=== PATIENT | male | born 1955 | race Caucasian/White ===

== ENCOUNTER 2020-02-14 18:51 | Emergency (ER) | payer BC ==
--- NOTE | 2020-02-14 19:28 | EDM.PDOC ---
ED HPI GENERAL MEDICAL PROBLEM - General Chief Complaint: Respiratory Problem Stated Complaint: SUDDEN ONSET OF COUGH Time Seen by Provider: 02/14/20 19:06 Source of Information: Reports: Patient History Limitations: Reports: No Limitations - History of Present Illness INITIAL COMMENTS - FREE TEXT/NARRATIVE: Mr. Cooper is a very pleasant 64-year-old gentleman with a past medical history significant for peripheral vascular disease, status post a left femoral artery bypass surgery on 02/05/2020, now on Plavix and baby aspirin, who states that he has a chronic smoker's cough, although he has not actually been diagnosed with COPD or any other difficult lung disease, although he does take Anoro. He now presents to the ED stating that he developed bloody sputum, with actual chunks of blood in his sputum, around 18:00 this evening. He has not had any chest or throat pain, and he does not feel dyspneic. No recent fever. No prior similar symptoms. The patient did not take any new medications or try any home remedies prior to coming to the ED. Here in the ED, the patient is found to be hemodynamically stable, afebrile, saturating 96% on room air. He coughed once in my presence, producing a pinkish sputum with no distinct visible clots, although he states that the bloodiness of the sputum has diminished since it initially began. Other than his chronic smoker's cough and today's bloody sputum, the patient denies recent fever, chills, sore throat, ear pain, nasal or sinus congestion, dyspnea, chest pain, palpitations, nausea, vomiting, constipation, diarrhea, abdominal pain, urinary symptoms, recent weight gain or weight loss, recent bloody bowel movements or black bowel movements, recent joint aches, headaches, or rashes. The patient's PCP is Dr. Rome William, although he sometimes sees Nandini Carney NP. His Vascular Surgeon is Dr. Manas Turcios. - Related Data Allergies Allergy/AdvReac Type Severity Reaction Status Date / Time No Known Allergies Allergy Verified 02/14/20 19:03 Home Meds: Home Meds Amoxicillin 1,000 mg PO Q8H #42 tab 02/14/20 [Rx] Anoro. 1 inh INH DAILY 02/14/20 [History] Aspirin [Aspir 81] 81 mg PO DAILY 02/14/20 [History] Azithromycin 1 tab PO QPM #4 tablet 02/14/20 [Rx] Bifidobacter. Bifidum/B.Longum [Florajen Bifidoblend] 460 mg PO DAILY 02/14/20 [History] Clopidogrel Bisulfate [Clopidogrel] 75 mg PO DAILY 02/14/20 [History] Rosuvastatin [Crestor] 10 mg PO BEDTIME 02/14/20 [History] Past Medical History Cardiovascular History: Reports: High Cholesterol, PVD Gastrointestinal History: Reports: Colon Polyp - Infectious Disease History Infectious Disease History: Reports: Meningitis (bacterial, 2005) - Past Surgical History HEENT Surgical History: Reports: Oral Surgery (dental extractions) Cardiovascular Surgical History: Reports: Vascular Surgery (Left femoral artery bypass 02/05/2020) GI Surgical History: Reports: Colonoscopy (x 1) Social & Family History - Tobacco Use Smoking Status *Q: Current Every Day Smoker Years of Tobacco use: 46 Packs/Tins Daily: 0.3 Packs/Tins Daily Comment: Down from 1.5 ppd - Caffeine Use Caffeine Use: Reports: None - Alcohol Use Alcohol Use History: Yes Alcohol Use Frequency: Rarely - Recreational Drug Use Recreational Drug Use: No - Living Situation & Occupation Living situation: Reports: , with Family (Brother) Occupation: Employed (professional driver) ED ROS GENERAL - Review of Systems Review Of Systems: Comprehensive ROS is negative, except as noted in HPI. ED EXAM, GENERAL - Physical Exam Exam: See Below Exam Limited By: No Limitations General Appearance: Alert, WD/WN, No Apparent Distress Eye Exam: Bilateral Eye: EOMI, Normal Inspection Ears: Normal External Exam, Normal Canal, Normal TMs, Hearing Loss (has bilateral hearin aids) Nose: Normal Inspection, Normal Mucosa, No Blood Throat/Mouth: Normal Inspection, Normal Lips, Normal Teeth, Normal Gums, Normal Oropharynx (No visible abnormalities or blood), Normal Voice, No Airway Compromise Head: Atraumatic, Normocephalic Neck: Normal Inspection, Supple, Non-Tender, Full Range of Motion. No: Lymphadenopathy (L), Lymphadenopathy (R) Respiratory/Chest: No Respiratory Distress, Lungs Clear, Normal Breath Sounds, No Accessory Muscle Use. No: Decreased Breath Sounds, Crackles, Rhonchi, Wheezing, Stridor, Prolonged Expiration Cardiovascular: Normal Peripheral Pulses, Regular Rate, Rhythm, No Edema, No Gallop, No JVD, No Murmur, No Rub Peripheral Pulses: 3+: Radial (L), Radial (R) GI/Abdominal: Normal Bowel Sounds, Soft, Non-Tender, No Organomegaly, No Distention, No Abnormal Bruit, No Mass (Male) Exam: Deferred Rectal (Males) Exam: Deferred Back Exam: Normal Inspection, Full Range of Motion, NT Extremities: Normal Inspection, Normal Range of Motion, No Pedal Edema, Normal Capillary Refill Neurological: Alert, Oriented, Normal Cognition, No Motor/Sensory Deficits Psychiatric: Normal Affect Skin Exam: Warm, Dry, Intact, Normal Color, No Rash Course - Vital Signs Last Recorded V/S: Last Vital Signs Temp 37.1 C 02/14/20 18:59 Pulse 91 02/14/20 18:59 Resp 16 02/14/20 18:59 BP 139/90 02/14/20 18:59 Pulse Ox 96 02/14/20 18:59 - Orders/Labs/Meds Orders: Active Orders 24 hr Category Date Time Status Chest 2V [CR] Stat Exams 02/14/20 19:24 Taken Sodium Chloride 0.9% [Normal Saline] 1,000 ml Med 02/14/20 20:15 Active IV ASDIRECTED Medication Orders Sodium Chloride (Normal Saline) 1,000 mls @ 150 mls/hr IV ASDIRECTED RAISSA Last Admin: 02/14/20 20:27 Dose: 150 mls/hr Documented by: CYDNEY Labs: Laboratory Tests 02/14/20 02/14/20 Range/Units 19:40 19:40 WBC 9.90 H (4.23-9.07) K/mm3 RBC 4.51 L (4.63-6.08) M/mm3 Hgb 13.7 (13.7-17.5) gm/dl Hct 40.5 (40.1-51.0) % MCV 89.8 (79.0-92.2) fl MCH 30.4 (25.7-32.2) pg MCHC 33.8 (32.2-35.5) g/dl RDW Std Deviation 42.0 (35.1-43.9) fL Plt Count 396 H (163-337) K/mm3 MPV 9.0 L (9.4-12.3) fl Neut % (Auto) 72.2 H (34.0-67.9) % Lymph % (Auto) 14.8 L (21.8-53.1) % [place] % (Auto) 8.9 (5.3-12.2) % Eos % (Auto) 3.3 (0.8-7.0) Baso % (Auto) 0.4 (0.1-1.2) % Neut # (Auto) 7.14 H (1.78-5.38) K/mm3 Lymph # (Auto) 1.47 (1.32-3.57) K/mm3 [place] # (Auto) 0.88 H (0.30-0.82) K/mm3 Eos # (Auto) 0.33 (0.04-0.54) K/mm3 Baso # (Auto) 0.04 (0.01-0.08) K/mm3 Sodium 138 (136-145) mEq/L Potassium 4.1 (3.5-5.1) mEq/L Chloride 102 (98-107) mEq/L Carbon Dioxide 28 (21-32) mEq/L Anion Gap 12.1 (5-15) BUN 17 (7-18) mg/dL Creatinine 1.3 (0.7-1.3) mg/dL Est Cr Clr Drug Dosing 53.67 mL/min Estimated GFR (MDRD) 56 (>60) mL/min BUN/Creatinine Ratio 13.1 L (14-18) Glucose 117 H (80-115) mg/dL Calcium 8.4 L (8.5-10.1) mg/dL Meds: Medications Generic Name Dose Route Start Last Admin Trade Name Freq PRN Reason Stop Dose Admin Sodium Chloride 1,000 mls @ 150 mls/hr 02/14/20 20:15 02/14/20 20:27 Normal Saline IV 150 mls/hr ASDIRECTED [facility] Administration - Re-Assessments/Exams Free Text/Narrative Re-Assessment/Exam: 02/14/20 19:25 As above, the patient has a chronic smoker's cough, but this evening developed painless bloody sputum, without dyspnea, chest pain, or fever. His oxygen saturation is normal for his age, and on examination, his lungs are entirely clear to auscultation bilaterally, without crackles or wheezes. No abnormalities are seen to the posterior oropharynx, however, I suspect that that is the source of his blood, and not his lungs. Nevertheless, I have ordered a chest x-ray to evaluate for infiltrate that might suggest true hemoptysis, and a CBC to make sure that he is not significantly anemic. 02/14/20 20:04 Two-view chest radiograph reviewed. The cardiac silhouette is within normal limits. No pulmonary vascular congestion. No pleural effusions. There appears to be a small infiltrate at the inferior and lateral aspect of the right upper lobe. No pneumothorax. Formal read per the Radiologist pending. The patient's CBC is remarkable for WBC count slightly elevated at 9.90 and platelets mildly elevated at 396,000, with the remainder of his CBC being unremarkable. 02/14/20 20:10 Chest x-ray results discussed with the patient. The patient mentioned that his doctors were concerned about an infiltrate on his chest x-ray, and that he underwent a CT scan for it, being told that he has some lung scarring. It is likely that that is what I am seeing on his current chest x-ray, however, I do not have access to those records, or CT results, indeed, we do not even have a prior chest x-ray to compare, therefore I have to recommend that we proceed with a CT of the chest with IV contrast to make sure that his hemoptysis is not due to something going on in his lung. The patient agreed. 02/14/20 21:27 CT of the chest with IV contrast is read by Dr. Patterson as: 1. Increased density within the lungs as described above most prominent within the right lower lung. Findings most likely represent scattered areas of pneumonia. 2. Nothing at this time is seen to indicate parenchymal mass. 3. Other findings as noted above which are nonacute. Based on the above, I will start the patient on amoxicillin and azithromycin for treatment of community-acquired pneumonia. 02/14/20 21:34 Test results and my plan to start the patient on antibiotics discussed with the patient. The patient is agreeable. I will discharge him home with prescriptions to complete a 7-day course of amoxicillin and a 5-day course of azithromycin. I would then like him to follow-up with his PCP. Departure - Departure Time of Disposition: 21:35 Disposition: Home, Self-Care 01 Condition: Good Clinical Impression: Right lower lobe pneumonia, Hemoptysis - Discharge Information *PRESCRIPTION DRUG MONITORING PROGRAM REVIEWED*: Not Applicable *COPY OF PRESCRIPTION DRUG MONITORING REPORT IN PATIENT MISHA: Not Applicable Referrals: Nandini Carney NP [Primary Care Provider] - Rome William MD [Physician] - Manas Turcios MD [Ordering Only Provider] - Forms: ED Department Discharge Additional Instructions: You were seen in the emergency room after developing bloody sputum this evening. Work-up in the ER included blood work, a chest x-ray, and a CT scan of your chest with IV contrast. Your work-up found that you have right lower lobe pneumonia. You have been started on antibiotics amoxicillin and azithromycin, and prescriptions for both amoxicillin and azithromycin have been sent to the clinic pharmacy, located in the [facility] across the [address] from the hospital. Take 1 tablet of amoxicillin every 8 hours, starting tomorrow morning, 02/15/2020, as prescribed. Take 1 tablet of azithromycin every evening, starting tomorrow evening, 02/15/2020, as prescribed. Finish both prescriptions unless told otherwise by your doctor. We recommend that you follow-up with your PCP, Dr. Rome William, within a week. We recommend that you call his office tomorrow morning to make an appointment, and make sure that the veterinary receptionist understands that you are following up from the ER. If any other problems, please do not hesitate to return to the ER. Sepsis Event Note (ED) - Evaluation Sepsis Screening Result: No Definite Risk - Focused Exam Vital Signs: Vital Signs Temp Pulse Resp BP Pulse Ox 02/14/20 18:59 37.1 C 91 16 139/90 96 - My Orders Last 24 Hours: My Active Orders 02/14/20 19:24 Chest 2V [CR] Stat 02/14/20 20:15 Sodium Chloride 0.9% [Normal Saline] 1,000 ml IV ASDIRECTED - Assessment/Plan Last 24 Hours: My Active Orders 02/14/20 19:24 Chest 2V [CR] Stat 02/14/20 20:15 Sodium Chloride 0.9% [Normal Saline] 1,000 ml IV ASDIRECTED
[2020-02-14] MEDS ORDERED: Sodium Chloride 0.9% 1,000 ML IV SCH (20:15)
--- NOTE | 2020-02-14 21:21 | CT ---
CT chest Technique: Multiple axial sections through the chest were obtained. Intravenous contrast was utilized. Comparison: No previous study is available. Findings: Increased density is seen within the right lower lung. Minimal increased density is seen within portions of the right upper lung. Very slight density is seen within left lower lung. Lungs otherwise are clear. No pleural effusions are seen. Small nodule is noted within the right adrenal gland having negative Hounsfield unit measurements most likely due to adenoma or a myolipoma. Nothing acute is seen within the visualized upper abdominal structures. Moderately large hiatal hernia seen. Small lymph nodes are seen within the mediastinum believed to be within normal limits. Mild coronary artery calcification is seen. Aorta shows no aneurysm. Bone window settings were reviewed which shows minimal degenerative change within the lower third thoracic spine and upper lumbar spine. No acute osseous finding is seen. Impression: 1. Increased density within the lungs as described above most prominent within the right lower lung. Findings most likely represent scattered areas of pneumonia. 2. Nothing at this time is seen to indicate parenchymal mass. 3. Other findings as noted above which are nonacute. Diagnostic code #3 This report was dictated in MDT
[2020-02-14] MEDS ORDERED: Amoxicillin 500 MG Cap PO STA (21:29)
[2020-02-14] MEDS ORDERED: Azithromycin 250 MG Tab PO STA (21:30)
[2020-02-14] MEDS ORDERED: Sodium Chloride 0.9% 10 ML Syringe FLUSH ONE ×2 (22:59→23:00)
[2020-02-14] MEDS ORDERED: Iopamidol 612 MG/ML 100 ML Bottle IVPUSH ONE (22:59)
--- NOTE | 2020-02-15 08:05 | CR ---
Chest: 2 views of the chest were obtained. Comparison: No prior chest imaging. Parenchymal density noted within the right lower lung. Hiatal hernia is noted. Heart size appears within normal limits. Tortuous thoracic aorta seen. Slight degenerative change is noted within the spine. Impression: 1. Parenchymal density within the right lung base most likely due to pneumonia. 2. Hiatal hernia. Diagnostic code #3 This report was dictated in MDT
== END 2020-02-14 21:52 | disposition home or self-care (01) ==
LOC: JD.ED 18:51
DX: J18.9 Pneumonia, unspecified organism (principal); R04.2 Hemoptysis; E78.00 Pure hypercholesterolemia, unspecified; F17.210 Nicotine dependence, cigarettes, uncomplicated; Z79.02 Long term (current) use of antithrombotics/antiplatelets; Z79.82 Long term (current) use of aspirin; Z79.899 Other long term (current) drug therapy
CPT/HCPCS: 36415; 71046; 71260; 80048; 85025; 99285; J7030; 99283; Q9967

== ENCOUNTER → 2021-12-04 | Day surgery (SDC) | payer BC ==
[~2021-12-04] MED LIST: Lactated Ringers 1,000 ML IV SCH; Lidocaine 1% 4 ML ONE; Lidocaine 1%/Sod Bicarbonate in NS 8.4% 1 ML Syringe IDERM PRN; Propofol 200 MG/20 ML SDV ONE; Sodium Chloride 0.9% 10 ML Syringe FLUSH PRN; Sodium Chloride 0.9% 10 ML Syringe FLUSH SCH
== END | disposition home or self-care (01) ==
LOC: JD.SDS 06:29
PROVIDERS: ATTEND Surgery
DX: D12.2 Benign neoplasm of ascending colon (principal); D12.3 Benign neoplasm of transverse colon; D12.5 Benign neoplasm of sigmoid colon; D12.8 Benign neoplasm of rectum; K64.2 Third degree hemorrhoids; K44.9 Diaphragmatic hernia without obstruction or gangrene; K57.30 Diverticulosis of large intestine without perforation or abscess without bleeding; K31.A0 Gastric intestinal metaplasia, unspecified; F17.210 Nicotine dependence, cigarettes, uncomplicated; I49.3 Ventricular premature depolarization; K29.50 Unspecified chronic gastritis without bleeding; E78.00 Pure hypercholesterolemia, unspecified; I25.10 Atherosclerotic heart disease of native coronary artery without angina pectoris; Z98.890 Other specified postprocedural states; Z79.899 Other long term (current) drug therapy
CPT/HCPCS: 43239; 45380; 45385; J2704; J7120; 00813

== ENCOUNTER 2022-11-16 06:47 | Emergency (ER) | payer BC ==
[2022-11-16 07:58] LABS: BASE EXCESS ARTERIAL 0.8 (-2-2.0); BICARBONATE,ARTERIAL 24.8 meq/L (22.0-26.0); O2 SATURATION ARTERIAL 90.6 % (96.0-97.0); PCO2 ARTERIAL 39.7 mmHg (35.0-45.0)
[2022-11-16 08:03] LABS: HEMATOCRIT 40.8 % (40.1-51.0); HEMOGLOBIN 13.9 gm/dl (13.7-17.5); MEAN CORPUSCULAR HEMOGLOBIN 29.8 pg (25.7-32.2); MEAN CORPUSCULAR HGB CONC 34.1 g/dl (32.2-35.5); MEAN CORPUSCULAR VOLUME 87.6 fl (79.0-92.2); MEAN PLATELET VOLUME 9.3 fl (9.4-12.3); PLATELET COUNT,PLT 222 K/mm3 (163-337); RED BLOOD CELL COUNT 4.66 M/mm3 (4.63-6.08); WHITE BLOOD CELL COUNT,WBC 8.61 K/mm3 (4.23-9.07)
[2022-11-16 08:09] LABS: CORONAVIRUS COVID-19 NAA NEGATIVE (NEGATIVE); INFLUENZA A NAA NEGATIVE (NEGATIVE)
[2022-11-16 08:31] LABS: D-DIMER QUANTITATIVE 0.49 mg/L (0.19-0.50); INR 1.06; PROTHROMBIN TIME 11.3 SECONDS (9.7-12.0)
[2022-11-16 08:32] LABS: PTT,PARTIAL THROMBOPLSTIN TIME 29.4 SECONDS (21.7-31.4)
[2022-11-16 08:37] LABS: A/G RATIO 1.2 (1-2); ALBUMIN 3.3 g/dl (3.4-5.0); ANION GAP 10.9 (5-15); BILIRUBIN TOTAL 0.8 mg/dL (0.2-1.0); BUN/CREATININE RATIO 11.3 (14-18); CALCIUM 8.6 mg/dL (8.5-10.1); CREATININE 0.8 mg/dL (0.7-1.3); EST CRCL DRUG DOSING (CG) 86.69 mL/min; POTASSIUM,K 3.9 mEq/L (3.5-5.1)
[2022-11-16 08:39] LABS: LACTIC ACID 0.6 mmol/L (0.4-2.0)
[2022-11-16 09:04] LABS: BAND PERCENT MAN 2 % (0-10); BASOPHILS PERCENT MAN 0 (0.2-1.2); EOSINOPHILS PERCENT MAN 0 % (0.8-7.0); LYMPHOCYTES % ATYPICAL MANUAL 0 %; LYMPHOCYTES PERCENT MAN 3 % (20-40); MONOCYTES PERCENT MAN 4 % (2-10)
[2022-11-16 09:06] LABS: PLATELET COUNT ESTIMATE ADEQUATE
[2022-11-16] MEDS ORDERED: Sodium Chloride 0.9% 1,000 ML IV SCH (09:45)
[2022-11-16] MEDS ORDERED: Iopamidol 612 MG/ML 100 ML Bottle IVPUSH ONE (09:51)
[2022-11-16] MEDS: Sodium Chloride 0.9% 10 ML Syringe FLUSH PRN ×2 (10:00→10:08)
[2022-11-16] MEDS ORDERED: Azithromycin 250 MG Tab PO STA (11:38)
[2022-11-16] MEDS ORDERED: Amoxicillin/Clavulanate K 875-125 MG Tab PO STA (11:39)
== END 2022-11-16 12:58 | disposition home or self-care (01) ==
LOC: JD.ED 06:47
DX: J18.9 Pneumonia, unspecified organism (principal); E78.00 Pure hypercholesterolemia, unspecified; J44.9 Chronic obstructive pulmonary disease, unspecified; F17.210 Nicotine dependence, cigarettes, uncomplicated; Z79.899 Other long term (current) drug therapy; Z79.02 Long term (current) use of antithrombotics/antiplatelets; Z20.822 Contact with and (suspected) exposure to COVID-19
CPT/HCPCS: 0240U; 36415; 36600; 71046; 71260; 80053; 82803; 83605; 83880; 84484; 85007; 85027; 85379; 85610; 85730; 87040; 93005; 96360; 96361; 99284; J3490; J7030; Q9967; 93010

== ENCOUNTER 2023-10-31 10:45 | Day surgery (SDC) | payer BC ==
[2023-10-31] MEDS: Polymyxin B/Trimethoprim 10 ML Bottle EYELF SCH (10:40)
[~2023-10-31 10:45] MED LIST changes: -Lactated Ringers 1,000 ML IV SCH; -Lidocaine 1% 4 ML ONE; -Lidocaine 1%/Sod Bicarbonate in NS 8.4% 1 ML Syringe IDERM PRN; -Propofol 200 MG/20 ML SDV ONE; -Sodium Chloride 0.9% 10 ML Syringe FLUSH PRN; -Sodium Chloride 0.9% 10 ML Syringe FLUSH SCH; +Tropicamide 1% Ophth Soln 15 ML Bottle EYELF SCH
[2023-10-31] MEDS: Brimonidine 0.2% Ophth Soln 5 ML Bottle EYELF SCH (10:45)
[2023-10-31] MEDS: Phenylephrine 2.5% Ophth Soln 2 ML Bot EYELF SCH (10:50)
[2023-10-31] MEDS: Tropicamide 1% Ophth Soln 3 ML Bottle EYELF SCH (10:55)
[2023-10-31] MEDS ORDERED: Ondansetron 4 MG/2 ML SDV IVPUSH PRN (10:55)
[2023-10-31] MEDS: Tetracaine HCl/PF 0.5% 4 ML Bottle EYEBOTH SCH (11:54)
[2023-10-31] MEDS: Lidocaine 1% PF 2 ML SDV INJECT SCH (12:16)
[2023-10-31] MEDS: Pilocarpine 4% Ophth Soln 15 ML Bot EYELF SCH (12:28)
[2023-10-31] MEDS: Cefuroxime 10 MG/ML SYRINGE EYELF SCH (12:28)
== END 2023-10-31 12:43 | disposition home or self-care (01) ==
LOC: JD.SDS 10:45
PROVIDERS: ATTEND Ophthalmology
DX: H25.813 Combined forms of age-related cataract, bilateral (principal); H52.31 Anisometropia; H02.831 Dermatochalasis of right upper eyelid; H02.834 Dermatochalasis of left upper eyelid; H16.103 Unspecified superficial keratitis, bilateral; H16.223 Keratoconjunctivitis sicca, not specified as Sjogren's, bilateral; H57.813 Brow ptosis, bilateral; F17.210 Nicotine dependence, cigarettes, uncomplicated; Z79.899 Other long term (current) drug therapy; Z98.890 Other specified postprocedural states
CPT/HCPCS: 66984; A9270; J0697; 00142; J3490; V2788-GY

== ENCOUNTER 2023-12-05 10:15 | Day surgery (SDC) | payer BC ==
[2023-12-05] MEDS: Polymyxin B/Trimethoprim 10 ML Bottle EYERT SCH (10:43)
[2023-12-05] MEDS: Brimonidine 0.2% Ophth Soln 5 ML Bottle EYERT SCH (10:51)
[2023-12-05] MEDS: Phenylephrine 2.5% Ophth Soln 2 ML Bot EYERT SCH (10:56)
[2023-12-05] MEDS: Tropicamide 1% Ophth Soln 3 ML Bottle EYERT SCH (11:00)
[2023-12-05] MEDS: Tetracaine HCl/PF 0.5% 4 ML Bottle EYEBOTH SCH (11:52)
[2023-12-05] MEDS: Lidocaine 1% PF 2 ML SDV INJECT SCH (12:37)
[2023-12-05] MEDS: Cefuroxime 10 MG/ML SYRINGE EYERT SCH (12:44)
[2023-12-05] MEDS: Pilocarpine 4% Ophth Soln 15 ML Bot EYERT SCH (12:47)
== END 2023-12-05 13:00 | disposition home or self-care (01) ==
LOC: JD.SDS 10:15
PROVIDERS: ATTEND Ophthalmology
DX: H25.811 Combined forms of age-related cataract, right eye (principal); J44.9 Chronic obstructive pulmonary disease, unspecified; E78.00 Pure hypercholesterolemia, unspecified; Z79.899 Other long term (current) drug therapy
CPT/HCPCS: 66984; A9270; J0697; J3490

== ENCOUNTER 2024-04-15 10:43 | Day surgery (SDC) | payer MEDICARE, BC ==
[~2024-04-15 10:43] MED LIST changes: +Ondansetron 4 MG/2 ML SDV IVPUSH PRN; -Tropicamide 1% Ophth Soln 15 ML Bottle EYELF SCH; +fentaNYL 100 MCG/2 ML SDV IVPUSH PRN
[2024-04-15] MEDS ORDERED: Midazolam 1 MG/ML 2 ML SDV ONE (12:45)
[2024-04-15] MEDS ORDERED: Propofol 200 MG/20 ML SDV ONE ×4 (12:45→13:37)
[2024-04-15] MEDS ORDERED: Lactated Ringers 1,000 ML IV ONE (12:45)
[2024-04-15] MEDS ORDERED: Lidocaine 2% 5 ML SDV ONE (12:57)
== END 2024-04-15 14:45 ==
LOC: JD.SDS 10:43
PROVIDERS: ATTEND Surgery
DX: Z12.11 Encounter for screening for malignant neoplasm of colon (principal); K22.2 Esophageal obstruction; D12.3 Benign neoplasm of transverse colon; D12.5 Benign neoplasm of sigmoid colon; D36.10 Benign neoplasm of peripheral nerves and autonomic nervous system, unspecified; K31.7 Polyp of stomach and duodenum; K31.A0 Gastric intestinal metaplasia, unspecified; K44.9 Diaphragmatic hernia without obstruction or gangrene; K57.30 Diverticulosis of large intestine without perforation or abscess without bleeding; Z86.0100 Personal history of colon polyps, unspecified; E78.5 Hyperlipidemia, unspecified; J44.9 Chronic obstructive pulmonary disease, unspecified; I25.10 Atherosclerotic heart disease of native coronary artery without angina pectoris; F17.210 Nicotine dependence, cigarettes, uncomplicated; Z79.82 Long term (current) use of aspirin; Z79.02 Long term (current) use of antithrombotics/antiplatelets; Z79.899 Other long term (current) drug therapy
CPT/HCPCS: 43239; 45380; J2250; J2704; J7120; 00813; J3490